=== PATIENT | female | born 1970 ===

== ENCOUNTER 2018-02-18 09:06 | Inpatient (IN) | payer OTHER ==
[~2018-02-18] VITALS: Ht 152.4 cm; Wt 49.0 kg
[~2018-02-18 09:06] MED LIST: PREVACID30 MG; REGLAN 10ML5 MG/ML; REGLAN5 MG/ML; ZOFRAN8 MG
== END 2018-03-07 18:00 | disposition home or self-care (01) | DRG 331 ==
LOC: SURH 02-25 12:45 → O/R 03-04 06:30 → SURH 03-04 06:30
PROVIDERS: Colon & Rectal Surgery
PROC: 0DJD8ZZ Inspection of Lower Intestinal Tract, Via Natural or Artificial Opening Endoscopic (ICD-10-PCS; 2018-03-04)
PROC: 0DTN4ZZ Resection of Sigmoid Colon, Percutaneous Endoscopic Approach (ICD-10-PCS; principal; 2018-03-04 17:45)
DX: K57.32 Diverticulitis of large intestine without perforation or abscess without bleeding (principal); D64.89 Other specified anemias

== ENCOUNTER 2019-04-24 05:59 | Day surgery (SDC) | payer OTHER | END 2019-04-24 09:45 | disposition home or self-care (01) | LOC: AMB-ENDOS 05:59 | DX: K57.32 Diverticulitis of large intestine without perforation or abscess without bleeding (principal); K64.1 Second degree hemorrhoids ==